=== PATIENT | female | born 1995 | race African-American/Black ===

== ENCOUNTER 2016-12-31 12:00 | Emergency (ER) | payer BC ==
[~2016-12-31] VITALS: Ht 167.6 cm; Wt 65.9 kg
[~2016-12-31 12:00] MED LIST: AMOXICILLIN500 MG PO; DIVALPROEX SOD500 MG PO; FIORICET,ESG1 TABLET PO; FLEXERIL10 MG PO; IMITREX25 MG PO; KEPPRA1000 MG PO; KEPPRA250 MG PO; KEPPRA500 MG PO; KEPPRA750 MG PO; LORTAB 5-325 M1 EACH PO; NAPROSYN500 MG PO; NEXPLANON68 MG SC; NO HOME MEDS; NOHOMEMEDS; TOPAMAX25 MG PO; TOPIRAMATE25 MG PO; TORADOL10 MG PO; VICODIN 5-3001 EACH PO; VITAMIN B-2100 MG PO
[2016-12-31 13:10] LABS: EOSINOPHIL (%) 2.6 % (0-5); EOSINOPHIL COUNT 0.1 K/uL (0-0.3); HEMATOCRIT 38.4 % (36.0-46.0); IMMATURE GRANULOCYTE (%) 0.4 % (0.0-0.7); INSTRUMENT ABS NEUTROPHIL CT 2.7 K/uL; LYMPHOCYTE COUNT 1.8 K/uL (1.0-2.8); MCH 21.7 PG (29.0-34.0); MCV 67.7 FL (83-99); MONOCYTE COUNT 0.4 K/uL (0-0.8); NEUTROPHIL (%) 53.8 % (45-76); NEUTROPHIL COUNT 2.7 K/uL (1.8-6.4); RBC DIS.WIDTH-CV 15.5 % (11.8-14.6); RED BLOOD COUNT 5.67 M/uL (3.80-5.20)
[2016-12-31 13:15] LABS: CHLORIDE 108 mEq/L (99-109); SODIUM 142 mEq/L (136-147)
[2016-12-31 13:17] LABS: GLUCOSE 92 mg/dL (70-99)
[2016-12-31 13:19] LABS: ANION GAP 7 MEQ/L (2-14)
[2016-12-31 13:21] LABS: GFR ESTIMATE (CALCULATED) > 59 mL/min/
[2016-12-31 13:22] LABS: UREA NITROGEN (BUN) 12 mg/dL (9-23)
[2016-12-31 13:30] LABS: QUANTITATIVE HCG < 4.0 MIU/ML
[2016-12-31 13:31] VITALS: BP 122/82
[2016-12-31 14:03] LABS: PLATELET COUNT 135 K/uL (156-360)
== END 2016-12-31 13:54 | disposition home or self-care (01) ==
LOC: EME 12:00
PROVIDERS: Emergency Medicine
DX: R56.9 Unspecified convulsions (principal)
CPT/HCPCS: 80048; 84702; 85025; 99281; 99284

== ENCOUNTER 2017-03-10 13:17 | Emergency (ER) | payer BC ==
[~2017-03-10] VITALS: Ht 167.6 cm; Wt 63.2 kg
[2017-03-10 14:59] LABS: ADD MIUA? NO; BILIRUBIN NEGATIVE; BLOOD NEGATIVE; COLOR STRAW ((YELLOW)); GLUCOSE (STRIP) NEGATIVE; KETONES 5; LEUKOCYTES NEGATIVE; NITRITE NEGATIVE; PROTEIN (STRIP) NEGATIVE; SPECIFIC GRAVITY 1.008 (1.000-1.030); UCUL ADDED? NO; UROBILINOGEN 0.2 MG/DL (0.2-1.0)
[2017-03-10 15:01] LABS: INTERNAL CONTROL VALID? YES
[2017-03-10 15:07] LABS: CHLORIDE 109 mEq/L (99-109); POTASSIUM 3.5 mEq/L (3.7-5.4); SODIUM 141 mEq/L (136-147)
[2017-03-10 15:08] LABS: GLUCOSE 109 mg/dL (70-99); HEMATOCRIT 37.4 % (36.0-46.0); MCH 21.8 PG (29.0-34.0); MCHC 32.9 G/DL (30.0-36.0); MCV 66.2 FL (83-99); RBC DIS.WIDTH-CV 15.3 % (11.8-14.6); RBC DIS.WIDTH-SD 35.5 % (39-53); RED BLOOD COUNT 5.65 M/uL (3.80-5.20); WHITE BLOOD COUNT 5.4 K/uL (4.1-10.2)
[2017-03-10 15:10] LABS: ANION GAP 10 MEQ/L (2-14)
[2017-03-10 15:12] LABS: GFR ESTIMATE (CALCULATED) > 59 mL/min/
[2017-03-10 15:13] LABS: UREA NITROGEN (BUN) 8 mg/dL (9-23)
[2017-03-10 15:42] LABS: PLAT.SUFFICIENCY DECREASED; PLATELET COUNT 132 K/uL (156-360)
[2017-03-10 16:32] VITALS: BP 112/78
== END 2017-03-10 16:33 | disposition home or self-care (01) ==
LOC: EME → EDBD 13:17 → EME 16:33
PROVIDERS: Emergency Medicine
DX: R20.2 Paresthesia of skin (principal)
CPT/HCPCS: 80048; 81003; 84703; 85027; 99281; 99283

== ENCOUNTER 2017-03-10 21:07 | Emergency (ER) | payer BC ==
[~2017-03-10] VITALS: Ht 167.6 cm; Wt 62.3 kg
[2017-03-10 23:50] VITALS: BP 129/81
== END 2017-03-10 23:51 | disposition home or self-care (01) ==
LOC: EME 21:07
DX: G43.909 Migraine, unspecified, not intractable, without status migrainosus (principal); Z88.1 Allergy status to other antibiotic agents
CPT/HCPCS: 99281; 99284; J1200; J1885; J2765; J7030

== ENCOUNTER 2017-03-12 11:13 | Emergency (ER) | payer BC ==
[~2017-03-12] VITALS: Ht 167.6 cm; Wt 65.4 kg
[2017-03-12 13:46] VITALS: BP 123/76
== END 2017-03-12 13:47 | disposition home or self-care (01) ==
LOC: EME 11:13
DX: G43.909 Migraine, unspecified, not intractable, without status migrainosus (principal)
CPT/HCPCS: 99281; 99285; J1100; J2765

== ENCOUNTER 2017-07-19 19:51 | Emergency (ER) | payer BC ==
[~2017-07-19] VITALS: Ht 167.6 cm; Wt 69.2 kg
[2017-07-20] MEDS ORDERED: FIORICET 50-301 EAC1 PO (00:15)
[2017-07-20] MEDS ORDERED: ZOFRAN ODT4 MG PO (00:15)
[2017-07-20 00:26] VITALS: BP 124/77
== END 2017-07-20 00:29 | disposition home or self-care (01) ==
LOC: EME 19:51 → EXP 19:51
DX: S00.83XA Contusion of other part of head, initial encounter (principal); R51 Headache; W22.03XA Walked into furniture, initial encounter; Z88.5 Allergy status to narcotic agent; Z88.1 Allergy status to other antibiotic agents; Z88.6 Allergy status to analgesic agent
CPT/HCPCS: 70450; 99281; 99285; J1200; J1885; J2765